=== PATIENT | female | born 1985 | race African-American/Black ===

== ENCOUNTER 2017-10-19 16:39 | Emergency (ER) | payer OTHER ==
[~2017-10-19] VITALS: Ht 152.4 cm; Wt 130.2 kg
[2017-10-19] MEDS ORDERED: JANTOVEN10 MG PO (17:23)
[2017-10-19] MEDS ORDERED: ASPIR 8181 MG PO (17:24)
[2017-10-19] MEDS ORDERED: PLAVIX 75 MG TA75 M1 PO (17:24)
[2017-10-19] MEDS ORDERED: ATORVASTATIN CA40 MG PO (17:25)
[2017-10-19] MEDS ORDERED: CARVEDILOL3.125 MG PO (17:25)
[2017-10-19] MEDS ORDERED: POTASSIUM20 PO (17:26)
[2017-10-19] MEDS ORDERED: FOLIC ACID1 MG PO (17:26)
[2017-10-19] MEDS ORDERED: LASIX 20 MG TAB20 MG PO (17:26)
[2017-10-19] MEDS ORDERED: HYDREA 500 MG500 M1 PO (17:27)
[2017-10-19] MEDS ORDERED: CELEXA40 MG PO (17:28)
[2017-10-19] MEDS ORDERED: MS CONTIN60 MG PO (17:29)
[2017-10-19] MEDS ORDERED: DILAUDID 2 MG TA2 MG PO (17:29)
[2017-10-19] MEDS ORDERED: FLEXERIL PO (17:30)
[2017-10-19] MEDS ORDERED: NEURONTIN 300300 M1 PO (17:30)
[2017-10-19] MEDS ORDERED: XANAX1 MG PO (17:30)
[2017-10-19] MEDS ORDERED: PREDNISONE 5 MG5 M1 PO (17:31)
[2017-10-19] MEDS ORDERED: FENTANYL PATCH75 MCG TRANSDERM (17:31)
[2017-10-19] MEDS ORDERED: TOPAMAX 100 MG100 MG PO (17:33)
[2017-10-19] MEDS ORDERED: TRILEPTAL150 MG PO (17:34)
[2017-10-19 18:29] VITALS: BP 118/69
== END 2017-10-19 18:30 | disposition home or self-care (01) ==
LOC: M.ERS 16:39
DX: G89.29 Other chronic pain (principal); Z53.21 Procedure and treatment not carried out due to patient leaving prior to being seen by health care provider; D57.1 Sickle-cell disease without crisis; Z91.041 Radiographic dye allergy status